=== PATIENT | male | born 1980 ===

== ENCOUNTER 2021-08-21 04:11 | Emergency (ER) | payer BC, OTHER ==
[2021-08-21] MEDS ORDERED: Aspirin 81 MG Tab.Chew PO ONE (04:31)
[2021-08-21 04:51] LABS: ANION GAP 16.7 mEq/L (7-13); CHLORIDE,CL 100 mmol/L (98-107); SODIUM,NA 138 mmol/L (136-145)
[2021-08-21] MEDS ORDERED: Famotidine 20 MG/2 ML SDV IVPUSH ONE (05:00)
[2021-08-21] MEDS ORDERED: fentaNYL 100 MCG/2 ML SDV IVPUSH ONE (05:00)
[2021-08-21 05:27] LABS: AMPHETAMINES,URINE NEGATIVE (NEGATIVE); BARBITURATES,URINE NEGATIVE (NEGATIVE); BENZODIAZEPINE,URINE NEGATIVE (NEGATIVE); MDMA (ECSTASY), URINE NEGATIVE (NEGATIVE); METHADONE,URINE NEGATIVE (NEGATIVE); METHAMPHETAMINES,URINE NEGATIVE (NEGATIVE); OPIATES,URINE NEGATIVE (NEGATIVE); OXYCODONE,URINE NEGATIVE (NEGATIVE); PHENCYCLIDINE,URINE NEGATIVE (NEGATIVE); TCA,URINE NEGATIVE (NEGATIVE)
== END 2021-08-21 07:40 | disposition home or self-care (01) ==
LOC: DL.ED 04:11
DX: R07.89 Other chest pain (principal); Z88.0 Allergy status to penicillin; Z87.891 Personal history of nicotine dependence
CPT/HCPCS: 36415; 71045; 80053; 80305-QW; 80307; 81003; 82150; 83690; 83880; 84484; 85025; 85379; 85610; 93005; 96374; 99285-25; A9270-GY; J3490